=== PATIENT | male | born 1955 | race Caucasian/White ===

== ENCOUNTER 2020-12-18 09:55 | Emergency (ER) | payer OTHER ==
[2020-12-18] MEDS ORDERED: Diazepam 5 MG TAB ONE (10:53)
[2020-12-18] MEDS ORDERED: Ibuprofen 200 MG TAB ONE (10:53)
== END 2020-12-18 11:33 | disposition home or self-care (01) ==
LOC: CSHERS 09:55
DX: M54.50 Low back pain, unspecified (principal); G89.29 Other chronic pain; E78.5 Hyperlipidemia, unspecified; I10 Essential (primary) hypertension; E11.9 Type 2 diabetes mellitus without complications; I25.10 Atherosclerotic heart disease of native coronary artery without angina pectoris
CPT/HCPCS: 99283